=== PATIENT | male | born 1990 | race Caucasian/White ===

== ENCOUNTER 2018-08-25 09:10 | Emergency (ER) | payer OTHER ==
[2018-08-25 09:17] VITALS: BMI 30.5
--- NOTE | 2018-08-25 09:25 | PDOC ---
History of Present Illness - History of Present Illness Initial Comments: 08/25/18 10:00 The patient is a 28 year old male, with a significant past medical history of Lymes Disease s/p treatment (few years ago), who presents to the emergency department with dizziness, headache, visual floaters this morning after having a moment of LOC last night s/p being elbowed to the right side of his head while playing basketball at 9PM last night. He states his teammates observed the patient fall to the fall and pass out for a few seconds. He states he regained consciousness and was driven home and went to bed. He denies taking any medications for his symptoms. He states he woke up this morning with a 10/ 10 headache which radiated from the right temporal region to the superior and posterior aspect of his head. He states chewing exacerbates his headache. He reports intermittent visual floaters which appear both black and white in color. Secondarily, he reports pain to his posterior right shoulder and his posterior neck. The patient denies chest pain, shortness of breath. The patient denies fever, chills, nausea, vomit, diarrhea and constipation. The patient denies dysuria, frequency, urgency and hematuria. Allergies: NKDA Past surgical history: none reported Social history: denies toxic habits <Iris Gaspar - Last Filed: 08/25/18 10:00> - General History Source: Patient Exam Limitations: No Limitations - History of Present Illness Initial Comments: <Celeste Lucio - Last Filed: 08/27/18 20:09> - General Chief Complaint: Head/Neck problem Stated Complaint: HEAD NJURY Time Seen by Provider: 08/25/18 09:25 Past History <Iris Gaspar - Last Filed: 08/25/18 10:00> - Past Medical History COPD: No - Suicide/Smoking/Psychosocial Hx Smoking History: Never smoked <Celeste Lucio - Last Filed: 08/27/18 20:09> - Past Medical History Allergies/Adverse Reactions: Allergies Allergy/AdvReac Type Severity Reaction Status Date / Time No Known Allergies Allergy Verified 08/25/18 09:17 Review of Systems - Review of Systems Able to Perform ROS?: Yes Comments:: 08/25/18 10:00 CONSTITUTIONAL: Absent: fever, no chills, no fatigue EYES: (+) visual floaters ENT: Absent: ear pain, no sore throat CARDIOVASCULAR: Absent: chest pain, no palpitations RESPIRATORY: Absent: cough, no SOB GASTROINTESTINAL: Absent: abdominal pain, no nausea, no vomiting, no constipation, no diarrhea GENITOURINARY: Absent: dysuria, no frequency, no hematuria MUSCULOSKELETAL: (+) right shoulder and posterior neck pain. Absent: back pain, no arthralgia, SKIN: Absent: rash NEURO: (+) headache and dizziness <BettieervinIris - Last Filed: 08/25/18 10:00> *Physical Exam - Vital Signs Last Vital Signs Temp Pulse Resp BP Pulse Ox 98.4 F 110 H 18 124/82 99 08/25/18 09:16 08/25/18 09:16 08/25/18 09:16 08/25/18 09:16 08/25/18 09:16 - Physical Exam Comments: 08/25/18 10:01 GENERAL: The patient is in no acute distress. HEAD: Normal with no signs of trauma. EYES: PERRLA, EOMI, sclera anicteric, conjunctiva clear. ENT: Ears normal, nares patent, oropharynx clear without exudates. Moist mucous membranes. NECK: Normal range of motion, supple without lymphadenopathy, JVD, or masses. LUNGS: Breath sounds equal, clear to auscultation bilaterally. No wheezes, and no crackles. HEART:Regular rate and rhythm, normal S1 and S2 without murmur, rub or gallop. ABDOMEN: Soft, nontender, normoactive bowel sounds. No guarding, no rebound. No masses palpable. EXTREMITIES: Normal range of motion, no edema. No clubbing or cyanosis. No erythema, or tenderness. NEUROLOGICAL: Cranial nerves II through XII grossly intact. Normal speech. No focal neurological deficits. MUSCULOSKELETAL: Back non-tender to palpation, no CVA tenderness SKIN: Warm, Dry, normal turgor, no rashes or lesions noted. <BettieIsamar muelleranda - Last Filed: 08/25/18 10:00> - Vital Signs Last Vital Signs Temp Pulse Resp BP Pulse Ox 98.4 F 110 H 18 124/82 99 08/25/18 09:16 08/25/18 09:16 08/25/18 09:16 08/25/18 09:16 08/25/18 09:16 <Celeste Lucio Last Filed: 08/27/18 20:09> Moderate Sedation - Procedure Monitoring Vital Signs: Procedure Monitoring Vital Signs Temperature 98.4 F 08/25/18 09:16 Pulse Rate 110 H 08/25/18 09:16 Respiratory Rate 18 08/25/18 09:16 Blood Pressure 124/82 08/25/18 09:16 O2 Sat by Pulse Oximetry (%) 99 08/25/18 09:16 <Iris Gaspar - Last Filed: 08/25/18 10:00> - Procedure Monitoring Vital Signs: Procedure Monitoring Vital Signs Temperature 98.4 F 08/25/18 09:16 Pulse Rate 110 H 08/25/18 09:16 Respiratory Rate 18 08/25/18 09:16 Blood Pressure 124/82 08/25/18 09:16 O2 Sat by Pulse Oximetry (%) 99 08/25/18 09:16 <Celeste Lucio - Last Filed: 08/27/18 20:09> ED Treatment Course - Medications Given in the ED: ED Medications Discontinued Medications Generic Name Dose Route Start Last Admin Trade Name Huangq PRN Reason Stop Dose Admin Acetaminophen 975 mg 08/25/18 09:38 08/25/18 09:57 Tylenol - PO 08/25/18 09:39 975 mg ONCE ONE Administration Metoclopramide HCl 10 mg 08/25/18 09:38 08/25/18 09:57 Reglan - PO 08/25/18 09:39 10 mg ONCE ONE Administration <Iris Gaspar - Last Filed: 08/25/18 10:00> Medical Decision Making - Medical Decision Making 08/25/18 09:39 This is a 28 yo M who presents to the ER with a complaint of headache Symptoms began after he got elbowed in the right side of the head yesterday night Awoke this morning with a headache Now dizziness No weakness No numbness No nausea or vomiting Right side of head tender to palpation NEURO: Mental status: The patient is oriented x3. Cranial nerves: Cranial nerves II through XII are intact Motor: The upper extremities are 5 over 5 in all muscle groups. The lower extremities are 5 over 5 in all muscle groups. Sensation: Sensation is intact to light touch throughout. Cerebellar: Lwomno-nzhlxm-iyon is normal in both upper extremities. Heel-knee- maxwell is normal in both lower extremities. Gait: Normal. Heel and toe walking are normal. Tandem gait is normal. 08/25/18 11:05 CT head - non intracranial bleeding, pathology CT C spine - straightening, no fracture or dislocation Will discharge to home <Celeste Lucio - Last Filed: 08/27/18 20:09> *DC/Admit/Observation/Transfer - Attestations Scribe Attestion: 08/25/18 10:01 Documentation prepared by Iris Gaspar, acting as medical clerk for Celeste Lucio MD <Iris Gaspar - Last Filed: 08/25/18 10:00> - Discharge Dispostion Decision to Admit order: No <Celeste Lucio - Last Filed: 08/27/18 20:09> Diagnosis at time of Disposition: Head trauma Qualifiers: Encounter type: initial encounter Qualified Code(s): S09.90XA - Unspecified injury of head, initial encounter Concussion Qualifiers: Encounter type: initial encounter Loss of consciousness presence/duration: without LOC Qualified Code(s): S06.0X0A - Concussion without loss of consciousness, initial encounter - Discharge Dispostion Disposition: HOME Condition at time of disposition: Stable - Patient Instructions Printed Discharge Instructions: DI for Concussion, DI for Closed Head Injury, DI for Postconcussion Syndrome Additional Instructions: Mr. Siu, Thank you for coming in to the ER today Please review your CT findings. Please review your discharge instructions re: concussion - NO return to contact sports until you are symptom free, decrease screen time Return to the emergency department immediately with ANY new, persistent or worsening symptoms. You should follow up with your primary doctor as soon as possible regarding today's emergency department visit. Please make sure your doctor reviews the results of your emergency evaluation. Thank you for coming to the [facility] today for your care. It was a pleasure to see you today. Please note that your evaluation is INCOMPLETE until you follow-up with your doctor. - Post Discharge Activity Forms/Work/School Notes: Back to Work
[2018-08-25] MEDS ORDERED: METOCLOPRAMIDE HCL 10 MG TABLET (FP) PO ONE ×2 (09:38→09:53)
[2018-08-25] MEDS ORDERED: ACETAMINOPHEN 325 MG TABLET (FP) PO ONE (09:38)
[2018-08-25] MEDS ORDERED: ACETAMINOPHEN 325 MG TABLET (FP) ONE (09:52)
[2018-08-25 11:35] VITALS: BP 120/70; PULSE 84; TEMP 98.1
== END 2018-08-25 11:23 | disposition home or self-care (01) ==
LOC: JER 09:10
DX: S06.0X0A Concussion without loss of consciousness, initial encounter (principal); W50.0XXA Accidental hit or strike by another person, initial encounter; Y93.67 Activity, basketball; Y92.310 Basketball court as the place of occurrence of the external cause; Y99.8 Other external cause status
CPT/HCPCS: 70450-TC; 72125-TC; 99282-25

== ENCOUNTER 2021-11-06 13:49 | Emergency (ER) | payer OTHER ==
[2021-11-06 14:18] VITALS: BP 113/71; PULSE 94; TEMP 97.7; BMI 29.7
== END 2021-11-06 16:29 | disposition left against medical advice (07) ==
LOC: JER 13:49
DX: S09.90XA Unspecified injury of head, initial encounter (principal); R42 Dizziness and giddiness; W22.8XXA Striking against or struck by other objects, initial encounter
CPT/HCPCS: 99281-25